=== PATIENT | male | born 1980 | race Two or more races ===

== ENCOUNTER 2024-04-26 11:05 | Emergency (ER) | payer MEDICAID ==
[~2024-04-26] VITALS: Ht 188 cm; Wt 102.0 kg
[2024-04-26 11:14] VITALS: BP 153/94; TEMP 36.7; O2SAT 98
[2024-04-26 11:16] VITALS: PULSE 61; RESP 18; O2SAT 99
== END 2024-04-26 14:22 | disposition home or self-care (01) ==
LOC: ER 11:05
DX: K40.90 Unilateral inguinal hernia, without obstruction or gangrene, not specified as recurrent (principal); Z98.890 Other specified postprocedural states
CPT/HCPCS: 99281